=== PATIENT | male | born 1940 | race Caucasian/White ===

== ENCOUNTER 2016-12-22 07:47 | Inpatient (IN) | payer MEDICARE ==
[2016-12-22] MEDS ORDERED: VASELINE LIP THERAPY TP PRN (08:02)
[2016-12-22] MEDS ORDERED: ARTIFICIAL TEARS OPHTH OINT OU PRN (08:02)
[2016-12-22] MEDS ORDERED: LEVOPHED DRIP 4 MG/NS 250 ML 4 MG/250 ML BAG IV SCH ×2 (08:11→09:00)
--- NOTE | 2016-12-22 08:17 | Emergency Department Report ---
ED CPR HPI - General Chief Complaint: Cardiac Arrest/CPR Stated Complaint: CARDIAC ARREST Time Seen by Provider: 12/22/16 08:01 Source: EMS, old records reviewed Mode of arrival: Stretcher Limitations: Altered Mental Status - History of Present Illness Initial Comments: 76-year-old male presents to the emergency department via EMS in cardiac arrest. Patient is a resident of a local shelter. Per report patient was last seen normal at 6:30 AM. Patient was noted to be unresponsive at 7 AM. CPR was started by the shelter staff. Upon EMS arrival, the patient was found to be apneic and pulseless. Initial rhythm on the registered nurse cardiac telemetry showed PEA. Patient was intubated by EMS. A left tibial IO was placed. Patient was administered 2 mg of epinephrine, one dose of Narcan, 1 amp of sodium bicarbonate, and was started on an epinephrine drip prior to arrival. Patient did have return of spontaneous circulation prior to arrival in the emergency department. Further history is unable to be obtained from the patient due to his clinical condition. MD Complaint: found unresponsive Time: 07:00 Place: OR/SNF Bystander CPR Performed: Yes Initial Findings in the Field: unresponsive, no respirations, no pulse, PEA ROSC in the Field: Yes Associated Injuries: No Treatments Prior to Arrival: intubation, epinephrine mgs # (2), sodium bicarbonate - Related Data Home Medications Medication Instructions Recorded Confirmed Last Taken Arginine/Glutamine/Calcium Hmb 1 each FEEDTUBE BID 12/22/16 12/22/16 Unknown [[place] Packet] Famotidine [Pepcid] 20 mg FEEDTUBE BID 12/22/16 12/22/16 Unknown Insulin Regular, Human [HumuLIN R] 1 unit SQ ACHS PRN 12/22/16 12/22/16 Unknown Allergies Allergy/AdvReac Type Severity Reaction Status Date / Time No Known Allergies Allergy Verified 12/22/16 08:09 ED Review of Systems ROS: Stated complaint: CARDIAC ARREST Other details as noted in HPI Comment: Unobtainable due to pts medical conditions ED Past Medical Hx - Past Medical History Previous Medical History?: Yes Hx Hypertension: Yes Hx Diabetes: Yes - Surgical History Past Surgical History?: Yes Additional Surgical History: Gastrostomy tube placement - Family History Family history: no significant - Social History Smoking Status: Unknown if ever smoked - Medications Home Medications: Home Medications Medication Instructions Recorded Confirmed Last Taken Type Arginine/Glutamine/Calcium Hmb 1 each FEEDTUBE BID 12/22/16 12/22/16 Unknown History [[place] Packet] Famotidine [Pepcid] 20 mg FEEDTUBE BID 12/22/16 12/22/16 Unknown History Insulin Regular, Human [HumuLIN R] 1 unit SQ ACHS PRN 12/22/16 12/22/16 Unknown History ED Physical Exam - General Limitations: Other General appearance: obtunded - Head Head exam: Present: atraumatic, normocephalic - Eye Eye exam: Present: normal appearance. Absent: PERRL (pupils 3 mm equal and minimally reactive) - ENT ENT exam: Present: mucous membranes moist, other (ETT in place) - Neck Neck exam: Present: normal inspection, full ROM - Respiratory Respiratory exam: Present: normal lung sounds bilaterally (with assisted ventilation. No spontaneous respirations noted) - Cardiovascular Cardiovascular Exam: Present: normal rhythm, tachycardia, normal heart sounds - GI/Abdominal GI/Abdominal exam: Present: soft, normal bowel sounds. Absent: distended, tenderness - Extremities Exam Extremities exam: Present: normal inspection, full ROM - Back Exam Back exam: Present: normal inspection, full ROM, other (wound vac noted over sacral decubitus ulcer) - Neurological Exam Neurological exam: Present: other (GCS 3T (E1, V1T, M1)) - Skin Skin exam: Present: warm, dry ED Course Vital Signs 12/22/16 12/22/16 12/22/16 07:47 07:50 08:00 Pulse Rate 123 H 121 H Respiratory 13 18 Rate Blood Pressure 96/60 62/27 O2 Sat by Pulse 100 Oximetry 12/22/16 12/22/16 12/22/16 08:11 08:21 08:25 Pulse Rate 105 H 94 H 117 H Respiratory 18 Rate Blood Pressure 93/37 93/37 93/37 O2 Sat by Pulse 100 100 Oximetry 12/22/16 12/22/16 12/22/16 08:31 08:41 08:45 Pulse Rate 105 H 106 H Respiratory 18 18 18 Rate Blood Pressure 93/37 69/32 O2 Sat by Pulse 100 Oximetry - Reevaluation(s) Reevaluation #1: 12/22/16 08:19 On arrival, the endotracheal tube placed by EMS appeared not to be in the proper position. This tube was removed. Patient was intubated by me on the first attempt, see procedure note. Epinephrine drip has been discontinued and patient started on norepinephrine drip. Obtaining labs and chest x-ray. Anticipate central line placement for further vasopressor support Reevaluation #2: 12/22/16 10:16 Lab and imaging results have been reviewed. Due to the elevated white blood cell count, elevated lactic acid level, and renal insufficiency there is concern for septic shock in this patient. Sepsis order set has been implanted including blood cultures. The patient's Yuan catheter will be exchanged by nursing and a fresh sample will be collected for culture. Patient will be administered IV Zosyn. Patient continues on a norepinephrine drip. Patient is to be admitted by the hospitalist. - Central Line Placement Right IJ Consent Obtained: emergent situation Time Out Performed: Yes Patient Placed on Monitor/Pulse Ox: Yes MD Prep: mask, gown, gloves Central Line Prep: Chlorhexidine scrub, sterile drapes applied Ultrasound Used for Placement: Yes Central Line Lumen Inserted: triple Bloods Obtained for Lab: No Central Line Position: good blood return, all ports aspirated, flus, sutured in place with nyl Dressing Applied: Tegaderm Post Procedure X-Ray: tip of catheter in good p Patient Tolerated Procedure: well Complications: none - Intubation Sedative: none ET Tube Size: 7.5 Tube Secured Depth (cm): 24 Tube Secured Location: lips Tube Placement Confirmation: visualized tube passing t, equal breath sounds bilat, no breath sounds over epi, confirmation by capnometr Patient Tolerated Procedure: well Intubation Complications: none ED Medical Decision Making - Lab Data Result diagrams: 12/22/16 08:10 12/22/16 08:10 - EKG Data -: EKG Interpreted by Me EKG shows normal: sinus rhythm, QRS complexes Rate: tachycardia - EKG Data When compared to previous EKG there are: previous EKG unavailable Interpretation: nonspecific ST-T wave anu, other (sinus tachycardia, first- degree AV block, left axis deviation) - Radiology Data Radiology results: image reviewed interpreted by me: Chest x-ray shows no acute cardiopulmonary abnormality. Endotracheal tube is in the proper position. The right internal jugular central line terminates in the superior vena cava. No pneumothorax seen. - Differential Diagnosis acute respiratory failure, arrhythmia Critical Care Time: Yes Critical care time in (mins) excluding proc time.: 45 Critical care attestation.: If time is entered above; I have spent that time in minutes in the direct care of this critically ill patient, excluding procedure time. Critical Care Time: The high probability of a clinically significant, sudden or life threatening deterioration of the cardiovascular and respiratory system(s) required my full and direct attention, intervention and personal management. The aggregate critical care time was 45 minutes. This time is in addition to time spent performing reported procedures but includes the following: [x] Data Review and interpretation [x] Patient assessment and monitoring of vital signs [x] Documentation [x] Medication orders and management ED Disposition Clinical Impression: Septic shock, Cardiac arrest due to other underlying condition Sepsis Qualifiers: Sepsis type: sepsis due to unspecified organism Qualified Code(s): A41.9 - Sepsis, unspecified organism Disposition: OP ADMITTED IP TO THIS HOSP Is pt being admited?: Yes Condition: Critical Referrals: DEEPAK WISDOM MD [Primary Care Provider] - 3-5 Days Time of Disposition: 10:20
--- NOTE | 2016-12-22 08:42 | Admit Criteria Form ---
Admission Criteria Documentation: SEVERE SEPSIS Clinical Indications for Admission to Inpatient Care (Place 'X' for any and all applicable criteria): Hospital admission is needed for appropriate care of the patient because of ANY ONE of the following: [X]I. Hemodynamic instability indicated by ANY ONE of the following(1)(2)(3)( 4)(5): [X]a. Vital sign abnormality not readily corrected by appropriate treatment within 12 to 24 hours indicated by ANY ONE of the following: []i) Tachycardia that persists despite appropriate treatment [X]ii) Hypotension that persists despite appropriate treatment []iii) Orthostatic vital sign changes that persist despite appropriate treatment [X]b. Vital sign abnormality that is severe indicated by ANY ONE of the following: [X]i.Inadequate perfusion indicated by ANY ONE of the following : [X]1) Lactic acidosis (greater than 2 mmol/L) []2) New abnormal capillary refill (greater than 3 seconds) []3) Reduced urine output []4) New altered mental status []5) Myocardial Ischemia [X]ii. Mean arterial pressure [A] less than 60 mm Hg []iii. Mean arterial pressure[A] less than 70 mm Hg after 30 minutes of appropriate treatment (eg, fluid resuscitation) []iv. Sustained heart rate greater than 120 beats per minute in adult []v. IV inotropic or vasopressor medication required to maintain adequate blood pressure or perfusion []II. Systemic or infectious condition causing severe symptoms or findings not responsive to emergency or observation care treatment (as appropriate) indicated by ANY ONE of the following: []a. Cardiac arrhythmias of immediate concern(1)(2)(3) []b. Severe endocrine disorder (eg, thyrotoxicosis, adrenal insufficiency)(4)(5) []c. Seizures (eg, new or recurrent)(6) []d. New-onset end organ failure or dysfunction as indicated by ANY ONE of the following: []i. Acute unexplained hypoxemia (eg, not from lung infection or chronic disease)(7)(8)(9) []ii. Acute renal failure as indicated by new onset of ANY ONE of the following(10)(11)(12)(13)(14): []1) 3-fold rise in serum creatinine from baseline []2) Serum creatinine greater than 4 mg/dL (354 micromoles/L) with acute rise greater than 0.5 mg/dL (44.2 micromoles/L) []3) Reduction of more than 75% in estimated glomerular filtration rate from baseline. []4) Estimated glomerular filtration rate less than 35 mL/min/1.73m2 ( 0.59 mL/sec/1.73m2) in child younger than 18 years. []5) Cessation of urine output indicated by ALL of the following: []A. Adequate volume status []B. Inadequate urine output as indicated by ANY ONE of the following: []a. Urine output less than 0.3 mL/kg/hr for 24 hours []b. Anuria (urine output less than 0.1 mL/kg/hr) for 12 hours []iii. Acute mental status changes(15) []iv. Acute hepatic failure (eg, plasma bilirubin greater than 4 mg/ dL (68 micromoles/L), new INR greater than 2.0)(16)(17) []e. Unmanageable nausea and vomiting(18) []f. New-onset or uncontrolled central diabetes insipidus(19)(20) []g. Clinically significant dehydration(18)(21) []h. Hypoglycemia(22) []i. Acidosis (pH less than 7.35) or alkalosis (pH greater than 7.45)( 22)(23) []j. Toxic drug level that indicates need for specific monitoring or treatment(24)(25) []k. Severe electrolyte abnormalities indicated by ALL of the following( 1)(2)(3): []i. Electrolytes and associated findings are not as expected for patient baseline or acceptable treatment effects. []ii. Severe abnormalities indicated by ANY ONE of the following: []1) Sodium less than 130 mEq/L (mmol/L) (new) []2) Sodium less than 135 mEq/L (mmol/L) with ANY ONE of the following: []A. Uncorrectable (to near normal or chronic baseline) after trial of outpatient and emergency treatment []B. Altered mental status []C. Seizures []D. Severe medical etiology requiring inpatient management (eg , heart failure, hypovolemia) []3) Sodium greater than 155 mEq/L (mmol/L) []4) Sodium greater than 150 mEq/L (mmol/L) with ANY ONE of the following: []A. Uncorrectable (to near normal or chronic baseline) with outpatient and emergency treatment []B. Altered mental status []C. Seizures []D. Severe medical etiology (eg, hypovolemia, diabetes insipidus) []5) Potassium less than 2.5 mEq/L (mmol/L) despite outpatient and emergency treatment []6) Potassium less than 3 mEq/L (mmol/L) with ANY ONE of the following : []A. Weakness []B. Cardiac abnormality (eg, arrhythmia, conduction disturbance ) []C. Cardiac ischemia []D. Ileus []E. Ongoing medical cause requiring inpatient management (eg, acute renal wasting or SIADH) []F. Other severe symptoms []7) Potassium greater than 6.5 mEq/L (mmol/L) []8) Potassium greater than 5 mEq/L (mmol/L) with ANY ONE of the following: []A. Uncorrectable (to near normal or chronic baseline) with outpatient and emergency treatment []B. Severe ECG findings[A] []C. Acute worsening of renal failure (creatinine greater than 2.5 mg/dL (221 micromoles/L) or significant elevation for age and size) []D. Severe weakness []E. Severe medical etiology (eg, hemolysis, infection, drug overdose) []9) Calcium less than 7 mg/dL (1.75 mmol/L) despite outpatient and emergency treatment(5) []10) Calcium less than 8 mg/dL (2 mmol/L) with significant symptoms or findings (eg, altered mental status, muscle spasms, seizures, breathing difficulty, cardiac abnormality (eg, arrhythmia or conduction disturbance))(5) []11) Calcium greater than 14 mg/dL (3.5 mmol/L)(5) []12) Calcium greater than 12 mg/dL (3 mmol/L) with ANY ONE of the following(5): []A. Uncorrectable (to near normal or chronic baseline) with outpatient and emergency treatment []B. Significant dehydration or hypovolemia as indicated by ALL of the following(3)(6)(7): []a. Not resolved with initial treatments []b. Clinically significant dehydration as indicated by ANY ONE of the following: [](1) Vomiting refractory to outpatient treatment (ie, precluding oral rehydration) [](2) Inability to drink [](3) Hypernatremia or other electrolyte abnormality unable to be corrected with outpatient and emergency treatment [](4) Failure to remain hydrated with outpatient therapy [](5) Reduced urine output [](6) Hypotension [](7) Serious cause for dehydration requiring acute hospitalization ( eg, bowel obstruction, increased intracranial pressure, infectious cause) [](8) Child with ANY ONE of the following(8): [](i) Severe abdominal tenderness [](ii) Adequate care not available at home [](iii) Severe dehydration (greater than 9% loss of body weight) []C. Significant symptoms or findings (eg, altered mental status , cardiac abnormality (eg, arrhythmia, conduction disturbance), malignant etiology requiring inpatient treatment) []13) Phosphorus less than 1 mg/dL (0.32 mmol/L) []14) Phosphorus less than 1.5 mg/dL (0.48 mmol/L) with ANY ONE of the following: []A. Patient unresponsive to outpatient and emergency treatment []B. Significant symptoms or findings (eg, weakness, altered mental status, breathing difficulty, seizures, rhabdomyolysis) []15) Phosphorus greater than 10 mg/dL (3.2 mmol/L) []16) Phosphorus greater than 4.5 mg/dL (1.45 mmol/L) (new) with ANY ONE of the following: []A. Severe medical etiology (eg, crush injury, acute renal failure) []B. Associated hypocalcemia with significant findings (eg, neurologic symptoms, altered mental status, muscle spasms, seizures, breathing difficulty, cardiac abnormality (eg, arrhythmia, conduction disturbance)) []16) Magnesium less than 1 mg/dL (0.41 mmol/L) []17) Magnesium less than 1.5 mg/dL (0.62 mmol/L) with ANY ONE of the following: []A. Patient unresponsive to outpatient and emergency treatment []B. Associated hypocalcemia with significant findings (eg, altered mental status, muscle spasms, seizures, breathing difficulty, cardiac abnormality (eg, arrhythmia, conduction disturbance)) []C. Associated hypokalemia (potassium less than 3 mEq/L (mmol/L )) with risk of arrhythmia []18) Magnesium greater than 4 mEq/L (2 mmol/L) []19) Magnesium greater than 2.5 mEq/L (1.25 mmol/L) with significant symptoms or findings (eg, weakness, altered mental status, cardiac abnormality (eg, arrhythmia, conduction disturbance), breathing difficulty, severe medical etiology (eg, renal failure, hypovolemia)) []20) Uric acid greater than 20 mg/dL (1190 micromoles/L)(9) []21) Uric acid greater than 8 mg/dL (476 micromoles/L) with significant symptoms or findings of tumor lysis syndrome (eg, creatinine greater than 1.5 times upper limit of normal, cardiac abnormality (eg , arrhythmia, conduction disturbance), seizure)(9) []III. High fever or other high-risk infection situation as indicated by ANY ONE of the following(26)(27)(28): []a. Outpatient and observation care antimicrobial treatment unavailable, not effective, or not appropriate []b. Documented bacteremia []c. Temperature greater than 104.9 degrees F (40.5 degrees C) (oral) []d. Temperature greater than 103.1 degrees F (39.5 degrees C) (oral) or less than 96.8 degrees F (36 degrees C) (rectal) that does not respond to emergency treatment and observation care []IV. High-risk febrile neutropenia[A] as indicated by ANY ONE of the following(29)(30)(31)(32): []a. Profound neutropenia[B] anticipated to extend for more than 7 days []b. Hemodynamic instability []c. Hypoxemia []d. Tachypnea []e. Altered mental status []f. New-onset abdominal pain []g. New-onset vomiting or diarrhea []h. Oral or gastrointestinal mucositis that interferes with swallowing or causes severe diarrhea []i. Focal infection (eg, cellulitis, pneumonia, central line or catheter infection, perirectal abscess) []j. Renal insufficiency (eg, GFR of less than 30 mL/min/1.73m2 (0.5 mL/sec /1.73m2)). []k. Severe liver dysfunction (transaminase levels greater than 5 times normal) []l. Platelet count less than 50,000/mm3 (50 x109/L)(33) []m. Leukemia or lymphoma induction therapy []n. Leukemia not in complete remission or with evidence of disease progression []o. Bone marrow transplant patient []p. Alemtuzumab being used for therapy []q. [employer] Association for Supportive Care in Cancer (MASCC) Risk Index score of less than 21[C](33)(35). []V. Isolation required (eg, tuberculosis that requires isolation, Ebola infection)[D](36)(37)(38)(39)(40) []. Gangrene that requires treatment beyond emergency or observation level care(41)(42) []VII. Antitoxin administration and ongoing observation required (eg, tetanus, botulism)(43)(44) [X]. Suspected infection with rapid progression or severe symptoms as indicated by ANY ONE of the following(45): []a. Streptococcal or staphylococcal toxic shock(46) []b. Diphtheria(47) []c. Hantavirus(48) []d. Severe acute respiratory syndrome(8)(49) []e. Anthrax(50) []f. Ebola[D](36)(37)(38) []g. Necrotizing soft tissue infection(41)(42) []h. Plague(50) [X]i. Other suspected infection that requires care beyond emergency or observation level care []VII. Severe adverse drug or systemic toxin reaction as indicated by ANY ONE of the following(24): []a. Serotonin syndrome(51)(52) []b. Neuroleptic malignant syndrome(51)(52) []c. Cholinergic syndrome with severe symptoms (eg, bronchorrhea, weakness , mental status changes, seizures)(53) []d. Anticholinergic syndrome []e. Sympathetic syndrome with severe symptoms (eg, seizures, mental status changes, cardiac dysrhythmias) []f. Other severe adverse drug or systemic toxin reaction that remains after emergency or observation level care (as appropriate) []VIII. Allergic reaction with severe symptoms (not responsive to emergency or observation care treatment as appropriate), including ANY ONE of the following(54): []a. Airway edema (pharyngeal, epiglottic, or laryngeal edema) []b. Stridor []c. Respiratory failure []d. Bronchospasm []e. Hypotension []IX. Environmental emergency (not responsive to emergency or observation care treatment as appropriate) as indicated by ANY ONE of the following(55)(56): []a. Hyperthermia []b. Heat stroke []c. Heat exhaustion []d. Hypothermia (temperature less than 95 degrees F (35 degrees C) rectal) (57) []e. Electrocution(58) []X. Complications of transplanted organ (ie, not covered elsewhere)[E] indicated by ANY ONE of the following(59): []a. Acute graft rejection (or graft vs. host disease)[F] requiring inpatient management (eg, intravenous immunosuppression)(60)(61)(62)( 63) []b. Acute failure of transplanted organ necessitating inpatient care (eg, cannot be managed in other setting) []c. Infection requiring inpatient management (eg, Hemodynamic instability, need for intravenous antimicrobial treatment)(64)(65) []d. Other complication of transplanted organ requiring inpatient management []XI. Systemic or Infectious Condition condition, symptom, or finding for which emergency and observation care have failed or are not considered appropriate. See General Criteria: Observation Care, General Admission Criteria or Pediatric General Admission Criteria guideline as appropriate. (Contents from SEVERE SEPSIS and SYSTEMIC OR INFECTIOUS CONDITION clinical indications for admission to inpatient care have been integrated in this form) The original [facility] content created by [facility] has been revised. The portions of the content which have been revised are identified through the use of italic text or in bold and [facility] has neither reviewed nor approved the modified material. All other unmodified content is copyright [facility]. Please see references footnoted in the original [facility] edition 2016 Admission Criteria Met: Yes
[2016-12-22 08:47] LABS: Albumin 2.4 g/dL (3.9-5); Albumin/Globulin Ratio 0.6 %; BUN/Creatinine Ratio 42.5; Bilirubin,Total 0.4 mg/dL (0.1-1.2); Calcium 8.9 mg/dL (8.4-10.2); Chloride 94.5 mmol/L (98-107); Potassium 4.1 mmol/L (3.6-5.0); Total Protein 6.5 g/dL (6.3-8.2)
[2016-12-22 08:48] LABS: Hematocrit 24.3 % (35.5-45.6); Hemoglobin 7.2 gm/dl (11.8-15.2); Mean Corpuscular HGB Conc 30 % (32-34); Mean Corpuscular Hemoglobin 28 pg (28-32); Mean Corpuscular Volume 96 fl (84-94); Platelet Count 360 K/mm3 (140-440); Red Blood Count 2.55 M/mm3 (3.65-5.03); Red Cell Distribution Width 18.4 % (13.2-15.2)
[2016-12-22 09:00] LABS: White Blood Count 36.1 K/mm3 (4.5-11.0)
[2016-12-22] MEDS ORDERED: NACL 0.9% 500 ML IV SCH (09:00)
[2016-12-22 10:00] LABS: Anisocytosis Few; Basophils % (Manual) 0 % (0.0-1.8); Blastocytes % (Manual) 0 %; Eosinophils % (Manual) 0.5 % (0.0-4.3)
[2016-12-22 10:01] LABS: Burr Cells 1+; Diff Status Complete; Elliptocytes 1+; Hypochromasia 1+; Poikilocytosis 1+; Polychromasia Few; Smudge Cells Few; Toxic Granulation Few
[2016-12-22] MEDS ORDERED: NACL 0.9% 1000 ML IV ONE (10:04)
--- NOTE | 2016-12-22 10:38 | XRay Report ---
Single view chest: History: ET tube placement. Findings: Normal cardiomediastinal silhouette. Trachea is midline. Tip of endotracheal tube in normal position. Tip of right central line in the superior vena cava. Bilateral perihilar infiltrates. No pneumothorax or pleural effusion. Impression: Bilateral perihilar infiltrates probably suggestive of pneumonitis. Less likely pulmonary edema.
[2016-12-22] MEDS ORDERED: ZOSYN/NS 3.375GM/50ML 3.375 GM/50 ML BAG IV ONE (11:00)
[2016-12-22] MEDS ORDERED: MILK OF MAGNESIA PO PRN (11:02)
[2016-12-22] MEDS ORDERED: MORPHINE IV PRN (11:02)
[2016-12-22] MEDS ORDERED: ZOFRAN IV PRN (11:02)
[2016-12-22] MEDS ORDERED: VANCOMYCIN VIAL 1,250 MG in NACL 0.9% 500 ML 500 ML IV ONE (11:02)
[2016-12-22] MEDS ORDERED: DULCOLAX PR PRN (11:02)
[2016-12-22] MEDS ORDERED: ALUM-MAG HYDROX-SIMETH 200-200-20MG/5ML PO PRN (11:02)
[2016-12-22 11:03] LABS: Bilirubin,Urine NEG (Negative); Blood,Urine MOD (Negative); Ketones,Urine NEG (Negative); Leukocyte Esterase,Urine LG (Negative); Nitrite,Urine NEG (Negative); Urobilinogen,Urine < 2.0 mg/dL (<2.0)
[2016-12-22 11:06] LABS: Bacteria,Urine 3+ /HPF (Negative); Mucus,Urine 1+ /HPF
[2016-12-22 11:09] LABS: WBC,Urine > 182.0 /HPF (0.0-6.0)
--- NOTE | 2016-12-22 11:10 | History and Physical Report ---
History of Present Illness Date of examination: 12/22/16 Date of admission: 12-22-16 Chief complaint: cardio arrest History of present illness: A showed 7 76-year-old male with a past medical history of hypertension, lipidemia, gastric cancer, diabetes diabetes. Patient was brought in from the senior care after an episode of pulseless activity. It was unknown how long patient was found down but it was approximately 6:30 this a.m. Nurses at the facility began CPR. Then patient was transferred to the ED. On ED patient had another episode of cardiorespiratory arrest and which were resuscitation measures. Patient was eventually intubated. Upon that time patient did not have a gag reflex was on the endotracheal to without any sedation. Patient pupils was somewhat dilated. Patient was unresponsive to even tactile stimulus. Nonverbal and obtunded. She was also found to be hypotensive upon evaluating patient had a and a catheter with martinez brown urine. Patient also had a large sacral decubitus wound. Past History Past Medical History: arrhythmia, COPD, diabetes, heart failure, hypertension, hyperlipidemia, other. denies: acute NV, atrial fib, anemia, arthritis, CAD, cancer, dialysis, DVT, ESRD, GERD, hepatitis, HIV/AIDS, hyperthyroidism, hypothyroidism, liver disease, migraines, seizures, stroke, sarcoidosis Past Surgical History: Other Social history: , smoking, other (unresponsicve unknown). denies: alcohol abuse, prescription drug abuse Medications and Allergies Allergies Allergy/AdvReac Type Severity Reaction Status Date / Time No Known Allergies Allergy Verified 12/22/16 08:09 Home Medications Medication Instructions Recorded Confirmed Last Taken Type Arginine/Glutamine/Calcium Hmb 1 each FEEDTUBE BID 12/22/16 12/22/16 Unknown History [[place]wick Packet] Famotidine [Pepcid] 20 mg FEEDTUBE BID 12/22/16 12/22/16 Unknown History Insulin Regular, Human [HumuLIN R] 1 unit SQ ACHS PRN 12/22/16 12/22/16 Unknown History Active Meds: Active Medications Hydrophilic Ointment (Vaseline Lip Therapy) 1 applic TP Q2HR PRN PRN Reason: Dry Lips Last Admin: 12/22/16 10:41 Dose: 1 applic Norepinephrine (Levophed Drip 4 Mg/Ns 250 Ml) 4 mg in 250 mls @ 7.5 mls/hr IV TITR MIKEY; 2 MCG/MIN PRN Reason: Protocol Last Titration: 12/22/16 09:00 Dose: 10 mcg/min, 37.5 mls/hr Piperacillin Sod/Tazobactam Sod (Zosyn/Ns 3.375gm/50ml) 3.375 gm in 50 mls @ 100 mls/hr IV ONCE.ED ONE Stop: 12/22/16 11:29 Multi-Ingred Cream/Lotion/Oil/Oint (Artificial Tears Ophth Oint) 1 applic OU Q4HR PRN PRN Reason: Dry Eye(s) Last Admin: 12/22/16 10:41 Dose: 1 applic Sodium Chloride (Nacl 0.9% 500 Ml) 1 ml IV DIRECT MIKEY Review of Systems ROS unobtainable: due to mental status Exam - Constitutional Vitals: Temp Pulse Resp BP Pulse Ox 121 H 18 80/43 99 12/22/16 10:20 12/22/16 08:45 12/22/16 10:20 12/22/16 10:20 General appearance: Present: cachectic, disheveled, other (temporal wasting and cachectic appearing dry oral mucosa.) - EENT Eyes: Present: miosis ENT: other (pupils fixed) - Neck Neck: Present: supple, normal ROM - Respiratory Respiratory effort: labored, accessory muscle use Respiratory: negative: diminished (intubated) - Cardiovascular Heart rate: 114 Rhythm: other (pretenses) Heart Sounds: Present: systolic murmur ( tachycardic hypotensive) - Extremities Extremity abnormal: other (has stage IV sacral decubitus wound chronic indwelling Yuan catheter. Minutes pulses and rash on right tibialis anterior area) - Abdominal General gastrointestinal: Present: other (scaphoid abdomen hypoactive bowel sounds) Male genitourinary: Present: deferred - Rectal Rectal Exam: deferred - Integumentary Integumentary: Present: clear, warm - Musculoskeletal Musculoskeletal: generalized weakness - Psychiatric Psychiatric: other - Neurologic Neurologic: focal deficits Results - Labs CBC & Chem 7: 12/22/16 08:10 12/22/16 08:10 Labs: Laboratory Last Values WBC 36.1 K/mm3 (4.5-11.0) H 12/22/16 08:10 RBC 2.55 M/mm3 (3.65-5.03) L 12/22/16 08:10 Hgb 7.2 gm/dl (11.8-15.2) L 12/22/16 08:10 Hct 24.3 % (35.5-45.6) L 12/22/16 08:10 MCV 96 fl (84-94) H 12/22/16 08:10 MCH 28 pg (28-32) 12/22/16 08:10 MCHC 30 % (32-34) L 12/22/16 08:10 RDW 18.4 % (13.2-15.2) H 12/22/16 08:10 Plt Count 360 K/mm3 (140-440) 12/22/16 08:10 Add Manual Diff Complete 12/22/16 08:10 Total Counted 200 12/22/16 08:10 Seg Neuts % (Manual) 73.0 % (40.0-70.0) H 12/22/16 08:10 Band Neutrophils % 10.0 % 12/22/16 08:10 Lymphocytes % (Manual) 5.5 % (13.4-35.0) L 12/22/16 08:10 Reactive Lymphs % (Man) 1.0 % 12/22/16 08:10 Monocytes % (Manual) 2.5 % (0.0-7.3) 12/22/16 08:10 Eosinophils % (Manual) 0.5 % (0.0-4.3) 12/22/16 08:10 Basophils % (Manual) 0 % (0.0-1.8) 12/22/16 08:10 Metamyelocytes % 5.0 % 12/22/16 08:10 Myelocytes % 2.0 % 12/22/16 08:10 Promyelocytes % 0.5 % 12/22/16 08:10 Blast Cells % 0 % 12/22/16 08:10 Nucleated RBC % Not Reportable 12/22/16 08:10 Seg Neutrophils # Man 26.4 K/mm3 (1.8-7.7) H 12/22/16 08:10 Band Neutrophils # 3.6 K/mm3 12/22/16 08:10 Lymphocytes # (Manual) 2.0 K/mm3 (1.2-5.4) 12/22/16 08:10 Abs React Lymphs (Man) 0.4 K/mm3 12/22/16 08:10 Monocytes # (Manual) 0.9 K/mm3 (0.0-0.8) H 12/22/16 08:10 Eosinophils # (Manual) 0.2 K/mm3 (0.0-0.4) 12/22/16 08:10 Basophils # (Manual) 0.0 K/mm3 (0.0-0.1) 12/22/16 08:10 Metamyelocytes # 1.8 K/mm3 12/22/16 08:10 Myelocytes # 0.7 K/mm3 12/22/16 08:10 Promyelocytes # 0.2 K/mm3 12/22/16 08:10 Blast Cells # 0.0 K/mm3 12/22/16 08:10 WBC Morphology Not Reportable 12/22/16 08:10 Hypersegmented Neuts Not Reportable 12/22/16 08:10 Hyposegmented Neuts Not Reportable 12/22/16 08:10 Hypogranular Neuts Not Reportable 12/22/16 08:10 Smudge Cells Few 12/22/16 08:10 Toxic Granulation Few 12/22/16 08:10 Toxic Vacuolation Not Reportable 12/22/16 08:10 Dohle Bodies Not Reportable 12/22/16 08:10 Pelger-Huet Anomaly Not Reportable 12/22/16 08:10 Jeny Rods Not Reportable 12/22/16 08:10 Platelet Estimate Appears normal 12/22/16 08:10 Clumped Platelets Not Reportable 12/22/16 08:10 Plt Clumps, EDTA Not Reportable 12/22/16 08:10 Large Platelets Not Reportable 12/22/16 08:10 Giant Platelets Not Reportable 12/22/16 08:10 Platelet Satelliting Not Reportable 12/22/16 08:10 Plt Morphology Comment Not Reportable 12/22/16 08:10 RBC Morphology Not Reportable 12/22/16 08:10 Dimorphic RBCs Not Reportable 12/22/16 08:10 Polychromasia Few 12/22/16 08:10 Hypochromasia 1+ 12/22/16 08:10 Poikilocytosis 1+ 12/22/16 08:10 Anisocytosis Few 12/22/16 08:10 Microcytosis Not Reportable 12/22/16 08:10 Macrocytosis Not Reportable 12/22/16 08:10 Spherocytes Not Reportable 12/22/16 08:10 Pappenheimer Bodies Not Reportable 12/22/16 08:10 Sickle Cells Not Reportable 12/22/16 08:10 Target Cells Not Reportable 12/22/16 08:10 Tear Drop Cells Not Reportable 12/22/16 08:10 Ovalocytes Not Reportable 12/22/16 08:10 Helmet Cells Not Reportable 12/22/16 08:10 [place] Bodies Not Reportable 12/22/16 08:10 [place] Rings Not Reportable 12/22/16 08:10 Barbara Cells 1+ 12/22/16 08:10 Bite Cells Not Reportable 12/22/16 08:10 Crenated Cell Not Reportable 12/22/16 08:10 Elliptocytes 1+ 12/22/16 08:10 Acanthocytes (Spur) Not Reportable 12/22/16 08:10 Rouleaux Not Reportable 12/22/16 08:10 Hemoglobin C Crystals Not Reportable 12/22/16 08:10 Schistocytes Not Reportable 12/22/16 08:10 Malaria parasites Not Reportable 12/22/16 08:10 Greg Bodies Not Reportable 12/22/16 08:10 Hem Pathologist Commnt Sent to pathology 12/22/16 08:10 Sodium 141 mmol/L (137-145) 12/22/16 08:10 Potassium 4.1 mmol/L (3.6-5.0) 12/22/16 08:10 Chloride 94.5 mmol/L (98-107) L 12/22/16 08:10 Carbon Dioxide 17 mmol/L (22-30) L 12/22/16 08:10 Anion Gap 34 mmol/L 12/22/16 08:10 BUN 68 mg/dL (9-20) H 12/22/16 08:10 Creatinine 1.6 mg/dL (0.8-1.5) H 12/22/16 08:10 Estimated GFR 42 ml/min 12/22/16 08:10 BUN/Creatinine Ratio 42.50 % 12/22/16 08:10 Glucose 167 mg/dL (75-100) H 12/22/16 08:10 POC Glucose 233 (70-105) H 12/22/16 07:51 Lactic Acid 14.7 mmol/L (0.7-2.0) H* 12/22/16 08:10 Calcium 8.9 mg/dL (8.4-10.2) 12/22/16 08:10 Total Bilirubin 0.4 mg/dL (0.1-1.2) 12/22/16 08:10 AST 418 units/L (5-40) H 12/22/16 08:10 ALT 296 units/L (7-56) H 12/22/16 08:10 Alkaline Phosphatase 198 units/L (35-129) H 12/22/16 08:10 Troponin T 0.065 ng/mL (0.00-0.029) H 12/22/16 08:10 Total Protein 6.5 g/dL (6.3-8.2) 12/22/16 08:10 Albumin 2.4 g/dL (3.9-5) L 12/22/16 08:10 Albumin/Globulin Ratio 0.6 % 12/22/16 08:10 Triglycerides 155 mg/dL (2-149) H 12/22/16 08:10 Cholesterol 71 mg/dL (50-199) 12/22/16 08:10 LDL Cholesterol Direct 33 mg/dL (50-130) L 12/22/16 08:10 HDL Cholesterol 7 mg/dL (40-59) L 12/22/16 08:10 Cholesterol/HDL Ratio 10.14 % 12/22/16 08:10 Urine Color Meghann (Yellow) 12/22/16 10:45 Urine Turbidity Turbid (Clear) 12/22/16 10:45 Urine pH 8.0 (5.0-7.0) H 12/22/16 10:45 Ur Specific [place] 1.014 (1.003-1.030) 12/22/16 10:45 Urine Protein 100 mg/dl mg/dL (Negative) 12/22/16 10:45 Urine Glucose (UA) Neg mg/dL (Negative) 12/22/16 10:45 Urine Ketones Neg mg/dL (Negative) 12/22/16 10:45 Urine Blood Mod (Negative) 12/22/16 10:45 Urine Nitrite Neg (Negative) 12/22/16 10:45 Urine Bilirubin Neg (Negative) 12/22/16 10:45 Urine Urobilinogen < 2.0 mg/dL (<2.0) 12/22/16 10:45 Ur Leukocyte Esterase Lg (Negative) 12/22/16 10:45 Urine WBC (Auto) > 182.0 /HPF (0.0-6.0) H 12/22/16 10:45 Urine RBC (Auto) 29.0 /HPF (0.0-6.0) 12/22/16 10:45 U Epithel Cells (Auto) 2.0 /HPF (0-13.0) 12/22/16 10:45 Urine Bacteria (Auto) 3+ /HPF (Negative) 12/22/16 10:45 Urine WBC Clumps 3+ /HPF 12/22/16 10:45 Urine Mucus 1+ /HPF 12/22/16 10:45 - Imaging and Cardiology EKG: image reviewed Chest x-ray: image reviewed Assessment and Plan Assessment and plan: I spent 60 minutes critical care time with patient. Patient required mod direct intervention and direct assessment immediately. Because of risk of decompensation from the cardiac system pulmonary system endocrine system and infectious disease. Patient had extensive history. Extensive data evaluation. So will require coordination and care and attempt to find the . prison is informed me that the had several months previously in the hospital. There is only a family friend Concetta at [phone] and I have been unable to reach her. Advance Directives: Yes VTE prophylaxis?: Chemical Plan of care discussed with patient/family: Yes - Patient Problems (1) Failure to thrive Current Visit: Yes Status: Acute Qualifiers: Failure to thrive age range: F Plan to address problem: Failure to thrive patient has complaints of being morbidly obese but now very thin temporal wasting scaphoid abdomen appears very ill. Chronically ill. Quite possible that gastric cancer was etiology of patient's initial decline. (2) Cardiac arrest due to other underlying condition Current Visit: Yes Status: Acute Plan to address problem: Cardiorespiratory arrest patient was found to be acute respiratory failure secondary to hypotension and septic shock. She received Ativan epinephrine CPR per chest and was stabilized only temporarily. She remained hypotensive. (3) Sepsis Current Visit: Yes Status: Acute Qualifiers: Sepsis type: sepsis due to unspecified organism Qualified Code(s): A41.9 - Sepsis, unspecified organism Plan to address problem: Sepsis and septic shock hypotension and hypothermia leukocytosis altered mental status. Bring in prognosis is extremely poor we'll attempted treat underlying etiology of sepsis which I feel is the urine. Chest x-ray unremarkable. (4) Septic shock Current Visit: Yes Status: Acute Plan to address problem: Septic shock secondary to sepsis with UTI. Patient also has acute renal failure vasomotor nephropathy. Would treat underlying etiology with broad- spectrum anabiotic's Rocephin and Levaquin vancomycin. Obtain blood cultures. The rest of our course would depend on what our microbiology shows. We'll start patient on pressor support. Vasopressin. Provide supportive care. (5) Diabetes Current Visit: Yes Status: Acute Qualifiers: Diabetes mellitus type: type 2 Diabetes mellitus complication status: D Diabetes mellitus complication detail: D Diabetic retinopathy severity: D Proliferative retinopathy type: P Diabetes mellitus macular edema: D Diabetes mellitus terminologist insulin use: D Laterality: L Chronic kidney disease stage: stage 1 Plan to address problem: Cover with sliding-scale insulin now. Patient not eating not drinking. Aggressive volume replacement. (6) Decubitus ulcer Current Visit: Yes Status: Acute Qualifiers: Pressure ulcer stage: P Plan to address problem: Sacral decubitus ulcer. Does not appear to be source of infection I think it is mostly urine with septic shock.
[2016-12-22] MEDS ORDERED: VANCOMYCIN VIAL 1,250 MG in NACL 0.9% 250ML 250 ML IV ONE (12:00)
[2016-12-22] MEDS ORDERED: VANCOMYCIN PHARMACY TO DOSE IV SCH (12:00)
[2016-12-22] MEDS ORDERED: NACL 0.9% 1000 ML 1,000 ML IV SCH (12:00)
[2016-12-22] MEDS ORDERED: LEVAQUIN 750MG/150ML 750 MG/150 ML BAG IV SCH (13:00)
[2016-12-22] MEDS ORDERED: NACL 0.9% 1000 ML 1,000 ML ONE ×2 (13:04→14:03)
[2016-12-22] MEDS ORDERED: NACL 0.9% 500 ML 500 ML ONE (13:23)
--- NOTE | 2016-12-22 13:48 | Consultation ---
History of Present Illness Consult date: 12/22/16 Requesting physician: HOLLIS MCCALL Consult reason: cardiac arrest History of present illness: The history was obtained from the medical record as the patient is intubated and unresponsive. Mr. Ceballos is a 76 year old male who presented from his [place] [facility] in cardiac arrest. Per ER documentation, his last known well time was 6:30 am. He was found unresponsive at 7:00 am. CPR was started by [facility] staff. Upon EMS arrival, the patient was found to be apneic and pulseless. Initial rhythm on the radiation monitor showed PEA. Patient was intubated and started on an epinephrine drip prior to arrival. Patient did have return of spontaneous circulation prior to arrival in the emergency department. Currently he is intubated and unresponsive. Troponin level is mildly elevated. WBC 36.1. Hemoglobin 7.2. BUN 68 with a creatinine of 1.6. Lactic acid 12.1. LFTs elevated. UA suggestive of UTI and CXR reveals bilateral perihilar infiltrates. Medications and Allergies Allergies Allergy/AdvReac Type Severity Reaction Status Date / Time No Known Allergies Allergy Verified 12/22/16 08:09 Home Medications Medication Instructions Recorded Confirmed Last Taken Type Arginine/Glutamine/Calcium Hmb 1 each FEEDTUBE BID 12/22/16 12/22/16 Unknown History [[place] Packet] Famotidine [Pepcid] 20 mg FEEDTUBE BID 12/22/16 12/22/16 Unknown History Insulin Regular, Human [HumuLIN R] 1 unit SQ ACHS PRN 12/22/16 12/22/16 Unknown History Active Meds: Active Medications Al Hydrox/Mg Hydrox/Simethicone (Alum-Mag Hydrox-Simeth [id number]/5ml) 30 ml PO Q4H PRN PRN Reason: Indigestion Albuterol/Ipratropium (Duoneb 0.5 Mg-3 Mg/3 Ml Soln) 1 ampul IH Q6HRT MIKEY Bisacodyl (Dulcolax) 10 mg MN QDAY PRN PRN Reason: constipation unrelieved by MOM Enoxaparin Sodium (Lovenox) 40 mg SUB-Q Q24H MIKEY Famotidine (Pepcid) 20 mg IV DAILY MIKEY Hydrophilic Ointment (Vaseline Lip Therapy) 1 applic TP Q2HR PRN PRN Reason: Dry Lips Last Admin: 12/22/16 10:41 Dose: 1 applic Norepinephrine (Levophed Drip 4 Mg/Ns 250 Ml) 4 mg in 250 mls @ 7.5 mls/hr IV TITR MIKEY; 2 MCG/MIN PRN Reason: Protocol Last Titration: 12/22/16 11:23 Dose: 12 mcg/min, 45 mls/hr Cefepime HCl (Maxipime/Ns 1 Gm/100 Ml) 1 gm in 100 mls @ 200 mls/hr IV Q12HR MIKEY PRN Reason: Protocol Levofloxacin/Dextrose (Levaquin 750mg/150ml) 750 mg in 150 mls @ 100 mls/hr IV Q48HR MIKEY PRN Reason: Protocol Sodium Chloride (Nacl 0.9% 1000 Ml) 1,000 mls @ 125 mls/hr IV DIRECT MIKEY Vancomycin HCl (Vancomycin/Ns 1 Gm/250 Ml) 1 gm in 250 mls @ 166.667 mls/hr IV Q36H MIKEY Vasopressin 20 unit/ Sodium (Chloride) 101 mls @ 9.09 mls/hr IV TITR MIKEY PRN Reason: 0.03 UNITS/MIN Magnesium Hydroxide (Milk Of Magnesia) 30 ml PO Q4H PRN PRN Reason: Constipation Morphine Sulfate (Morphine) 2 mg IV Q4H PRN PRN Reason: Pain, Moderate (4-6) Multi-Ingred Cream/Lotion/Oil/Oint (Artificial Tears Ophth Oint) 1 applic OU Q4HR PRN PRN Reason: Dry Eye(s) Last Admin: 12/22/16 10:41 Dose: 1 applic Ondansetron HCl (Zofran) 4 mg IV Q8H PRN PRN Reason: N/V unrelieved by Reglan Sodium Chloride (Nacl 0.9% 500 Ml) 1 ml IV DIRECT MIKEY Vancomycin HCl (Vancomycin Pharmacy To Dose) 1 each IV PKCONSULT MIKEY PRN Reason: Protocol Physical Examination Vital Signs Pulse BP 123 H 96/60 12/22/16 07:47 12/22/16 07:47 Results 12/22/16 08:10 12/22/16 08:10 Assessment and Plan S/p cardiac arrest initial rhythm PEA obtain echo Septic shock/hypotension likely due to pneumonia and UTI abx. per primary wean pressors to maintain MAP > 65 Acute respiratory failure vent weaning per pulmonary Elevated troponin-->likely due to CPR/renal failure Acute on chronic renal failure Anemia Obtain echo. Wean pressors to maintain MAP > 65. Guarded prognosis. The patient has been seen in conjunction with Dr. Hernandez who agrees with the assessment and plan of care. Thank you Dr. Mccall for allowing us to participate in the care of this patient.
[2016-12-22] MEDS ORDERED: MAXIPIME/NS 1 GM/100 ML 1 GM/100 ML BAG IV SCH (13:50)
[2016-12-22] MEDS ORDERED: LOVENOX SUB-Q SCH (14:00)
[2016-12-22] MEDS ORDERED: DUONEB 0.5 MG-3 MG/3 ML SOLN IH SCH (14:00)
[2016-12-22] MEDS ORDERED: PITRESSin 20 UNIT in NACL 0.9% 100 ML IV SCH (14:00)
[2016-12-22] MEDS ORDERED: LOVENOX SUB-Q ONE (14:23)
[2016-12-22] MEDS ORDERED: LEVAQUIN 750MG/150ML 750 MG/150 ML BAG IV ONE (14:23)
[2016-12-22] MEDS ORDERED: LEVOPHED DRIP 4 MG/NS 250 ML 4 MG/250 ML BAG IV ONE (14:37)
[2016-12-22 15:05] LABS: ISTAT Base Excess -10; ISTAT HCO3 19.9; ISTAT PCO2 69.8 (35-45); ISTAT PH 7.064 (7.35-7.45); ISTAT PO2 370 (80-105); ISTAT SO2 100; ISTAT TCO2 22
[2016-12-22] MEDS ORDERED: SODIUM BICARBONATE IV ONE ×2 (15:13→16:32)
--- NOTE | 2016-12-22 15:22 | Consultation ---
History of Present Illness Consult date: 12/22/16 Requesting physician: HOLLIS BORJA History of present illness: PULMONARY/CCM CONSULT NOTE (Full dictation # [id number]) Please see dictated notes for full details Medications and Allergies Allergies Allergy/AdvReac Type Severity Reaction Status Date / Time No Known Allergies Allergy Verified 12/22/16 08:09 Home Medications Medication Instructions Recorded Confirmed Last Taken Type Arginine/Glutamine/Calcium Hmb 1 each FEEDTUBE BID 12/22/16 12/22/16 Unknown History [[place] Packet] Famotidine [Pepcid] 20 mg FEEDTUBE BID 12/22/16 12/22/16 Unknown History Insulin Regular, Human [HumuLIN R] 1 unit SQ ACHS PRN 12/22/16 12/22/16 Unknown History Active Meds: Active Medications Al Hydrox/Mg Hydrox/Simethicone (Alum-Mag Hydrox-Simeth [phone]/5ml) 30 ml PO Q4H PRN PRN Reason: Indigestion Albuterol/Ipratropium (Duoneb 0.5 Mg-3 Mg/3 Ml Soln) 1 ampul IH Q6HRT [facility] Bisacodyl (Dulcolax) 10 mg PA QDAY PRN PRN Reason: constipation unrelieved by MOM Enoxaparin Sodium (Lovenox) 40 mg SUB-Q Q24H [facility] Last Admin: 12/22/16 14:34 Dose: 40 mg Famotidine (Pepcid) 20 mg IV DAILY MIKEY Hydrophilic Ointment (Vaseline Lip Therapy) 1 applic TP Q2HR PRN PRN Reason: Dry Lips Last Admin: 12/22/16 10:41 Dose: 1 applic Norepinephrine (Levophed Drip 4 Mg/Ns 250 Ml) 4 mg in 250 mls @ 7.5 mls/hr IV TITR MIKEY; 2 MCG/MIN PRN Reason: Protocol Last Titration: 12/22/16 11:23 Dose: 12 mcg/min, 45 mls/hr Cefepime HCl (Maxipime/Ns 1 Gm/100 Ml) 1 gm in 100 mls @ 200 mls/hr IV Q12HR MIKEY PRN Reason: Protocol Levofloxacin/Dextrose (Levaquin 750mg/150ml) 750 mg in 150 mls @ 100 mls/hr IV Q48HR MIKEY PRN Reason: Protocol Last Admin: 12/22/16 14:34 Dose: 100 mls/hr Sodium Chloride (Nacl 0.9% 1000 Ml) 1,000 mls @ 125 mls/hr IV DIRECT MIKEY Last Admin: 12/22/16 13:35 Dose: 125 mls/hr Vancomycin HCl (Vancomycin/Ns 1 Gm/250 Ml) 1 gm in 250 mls @ 166.667 mls/hr IV Q36H MIKEY Vasopressin 20 unit/ Sodium (Chloride) 101 mls @ 9.09 mls/hr IV TITR MIKEY PRN Reason: 0.03 UNITS/MIN Last Admin: 12/22/16 14:17 Dose: 9.09 mls/hr Magnesium Hydroxide (Milk Of Magnesia) 30 ml PO Q4H PRN PRN Reason: Constipation Morphine Sulfate (Morphine) 2 mg IV Q4H PRN PRN Reason: Pain, Moderate (4-6) Multi-Ingred Cream/Lotion/Oil/Oint (Artificial Tears Ophth Oint) 1 applic OU Q4HR PRN PRN Reason: Dry Eye(s) Last Admin: 12/22/16 10:41 Dose: 1 applic Ondansetron HCl (Zofran) 4 mg IV Q8H PRN PRN Reason: N/V unrelieved by Reglan Sodium Chloride (Nacl 0.9% 500 Ml) 1 ml IV DIRECT MIKEY Vancomycin HCl (Vancomycin Pharmacy To Dose) 1 each IV PKCONSULT MIKEY PRN Reason: Protocol Physical Examination Vital signs: Vital Signs Pulse BP 123 H 96/60 12/22/16 07:47 12/22/16 07:47 Results - Laboratory Findings CBC and BMP: 12/22/16 08:10 12/22/16 08:10 ABG POC ABG pH 7.064 (7.35-7.45) L 12/22/16 10:23 POC ABG pCO2 69.8 (35-45) H 12/22/16 10:23 POC ABG pO2 370 (80-105) H 12/22/16 10:23 POC ABG HCO3 19.9 12/22/16 10:23 POC ABG Total CO2 22 12/22/16 10:23 POC ABG O2 Sat 100 12/22/16 10:23 Abnormal lab findings: Abnormal Labs 12/22/16 11:24 Lactic Acid 12.1 H*
[2016-12-22 15:31] LABS: ISTAT Base Excess -5; ISTAT PCO2 80.5 (35-45); ISTAT PO2 54 (80-105); ISTAT SO2 73; ISTAT TCO2 27
[2016-12-22 15:58] VITALS: BP 96/60
[2016-12-22 16:21] LABS: ISTAT Base Excess TNR; ISTAT HCO3 TNR; ISTAT PCO2 TNR (35-45); ISTAT PH TNR (7.35-7.45)
[2016-12-22 16:22] LABS: ISTAT PO2 TNR (80-105); ISTAT SO2 TNR; ISTAT TCO2 TNR
[2016-12-22 16:29] LABS: Magnesium 2.9 mg/dL (1.7-2.3); Phosphorous 7.9 mg/dL (2.5-4.5)
[2016-12-22] MEDS ORDERED: ADRENALIN ONE (16:32)
--- NOTE | 2016-12-22 18:27 | Death Note ---
Note Date of : 12/22/16 Time of : 16:40 - Preliminary Cause of (problem) (1) Failure to thrive Qualifiers: Failure to thrive age range: in adult Qualified Code(s): R62.7 - Adult failure to thrive Preliminary cause of Patient cause of (2) Cardiac arrest due to other underlying condition Patient cause of was cardiorespiratory arrest. Patient presented to the ED hypotensive on 2 pressors that were maxed out and pressure still was not very well maintained. Was 70 over palpable. At best. Patient also presented septic shock. Upon presentation patient had episode of pulseless activity in which CPR was started and she received 3 epinephrine into by car. The Route resuscitation with bag ventilation and chest compressions patient did not show pulse within 15 minutes. That particular time: Was called a should have been found down in the skilled nursing we did not know how long. Also had another cold in the ED and finally had her last cold this time. Patient did not have any reflex gag reflex was intubated and unresponsive pupils fixed and dilated it had not had any chance oh quality of life or survival at this time. Therefore code was called. Attempted to each family member after calling skilled nursing multiple times. And found he was his own power of pizza chef and his recently in the hospital. Patient had a friend named Concetta and attempts were made to call [phone]. (3) Sepsis Qualifiers: Sepsis type: Escherichia coli Qualified Code(s): A41.51 - Sepsis due to Escherichia coli [E. coli] Preliminary cause of (4) Septic shock Preliminary cause of (5) Diabetes Qualifiers: Diabetes mellitus type: type 2 Diabetes mellitus complication status: D Diabetes mellitus complication detail: D Diabetic retinopathy severity: D Proliferative retinopathy type: P Diabetes mellitus macular edema: D Diabetes mellitus intermission coordinator insulin use: D Laterality: L Chronic kidney disease stage: stage 1 Preliminary cause of (6) Decubitus ulcer Qualifiers: Pressure ulcer stage: P Preliminary cause of
[2016-12-22] MEDS ORDERED: PEPCID IV SCH (22:00)
--- NOTE | 2016-12-23 02:36 | Consultation ---
CONSULTING PHYSICIAN: Jluis Mccall MD REASON FOR CONSULTATION: Acute hypoxemic respiratory failure, status post cardiac arrest. CHIEF COMPLAINT AND HISTORY OF PRESENT ILLNESS: The patient is a 76-year-old male with past medical history as far as we can tell is significant for hypertension and diabetes, custodial resident, who was last seen normal at 6:30 a.m. at the custodial. Thirty minutes later, he was found unresponsive. CPR was started. EMS mentioned that the patient was apneic and pulseless. Initial rhythm was PEA. He was intubated in the custodial, received ACLS medications, a dose of Narcan, started on epinephrine drip. He did not have return of spontaneous circulation prior to arrival in the ED. In the emergency room, he was kept on the mechanical ventilator and we are asked to assist with management. When I came by to see him, he remained on the mechanical ventilator, was going right in the set rate I believe of 18, tidal volumes of 450, PEEP of 5, nonresponsive. He was hypotensive. Mean arterial pressures were below 60s in the 40s. I do not have any history of emesis or overt aspiration. I certainly cannot rule that out. The patient is not a current tobacco abuser. Remote history is unknown. That really is as much of the history of presentation as I have. PAST MEDICAL HISTORY: Hypertension, diabetes, history of colon cancer, and history of prostate cancer. PAST SURGICAL HISTORY: He has a percutaneous endoscopic gastrostomy tube. MEDICATIONS: He was on at the time I stopped by to see him, according to the medication administration record included the following: He was on albuterol and Atrovent treatments nebulized q.6 hours, cefepime 1 gram IV q.12h., Lovenox 40 mg subcutaneous daily, Pepcid 20 mg IV daily, Levaquin 750 mg IV q.48 hours, morphine 2 mg IV q.____ hours. p.r.n., Levophed drip was going at 12 mcg per minute, Zofran 4 mg IV q.8 hours p.r.n. nausea and vomiting, vancomycin, he received 1 gram dose. He was also on vasopressin, I believe 0.03 units per minute. ALLERGIES: No known drug allergies. DIET: Thin gentleman, acute weight loss or gain history is unknown. FAMILY AND SOCIAL HISTORY: Reportedly, the information we are now getting is that he has recently lost his , he is single, does not appear to be any kids that can be contacted at this point. Remote tobacco, alcohol, or illicit drug use or abuse history is unknown. REVIEW OF SYSTEMS: Unobtainable secondary to the patient's medical and mental condition. Since he has been here, no gross hematochezia or melena, no witnessed seizures, no hematemesis, no bloody tracheal secretions. PHYSICAL EXAMINATION: VITAL SIGNS: At presentation in the Emergency Room, temperature was 97.5, pulse was 123, respiratory rate was 13, blood pressure was 96/60 and quickly dropped to 62/27, oxygen sats are 100%, inspired oxygen concentration was not recorded at the time. HEAD, EYES, EARS, NOSE, AND THROAT: Pupils are equal, round, about 3 mm, very sluggishly reactive to light. Extraocular muscle movements could not be assessed. Endotracheal tube is in place, taped at the lips around 23 cm. LUNGS: Auscultation of both lung bautista revealed bilateral rales, no wheezing. NECK: Grossly, no palpable lymph nodes in the supraclavicular or submandibular lymph node chains. He has a right IJ triple lumen catheter in place. ABDOMEN: Flat, soft, bowel sounds positive, nontender. EXTREMITIES: Without overt digital clubbing, cyanosis, or pedal edema. NEUROLOGIC: He was nonresponsive. LABORATORY DATA: From my review are as follows: White cell count 36,100 with a hemoglobin of 7.3, hematocrit of 24.3, and platelets of 360. Arterial blood gas at presentation showed a pH of 7.06, pCO2 of 70, pO2 of 370, and this was on 100% FiO2. I believe the vent settings at that time 450 on tidal volumes, 14 on the rate and 5 on the PEEP. Serum sodium was 141, potassium 4.1, chloride 95, bicarbonate 17, BUN 68, creatinine 1.6, and a glucose of 167. Lactic acid level was 12.1. AST was 418, ALT was 296, troponin 0.065, albumin low at 2.4. Urinalysis showed large leukocyte esterase and greater than 182 white cells per high power field. RADIOGRAPHIC STUDIES: Chest x-ray shows right IJ central line tip is likely in the right atrium/right atrium SVC junction, bilateral hilar predominant or perihilar infiltrates obvious. Defibrillator pads are seen overlying the right upper anterior chest wall. Endotracheal tube tip is at the level of the aortic knob. No gross pneumothorax, no gross bony fractures that I can see. Blood cultures no growth to date. ASSESSMENT AND PLAN: We have an elderly gentleman in with severe sepsis. Respiratory shaver, we will assume that this is a bilateral pneumonia and continue bronchodilators as ordered. Aspiration precautions and other ventilator bundles will be instituted. I will get a stat ABG right now but in the meantime, I am going to hyperventilate him to compensate for the severe metabolic acidosis he is dealing with in particular. I will increase the set rate to 25 and keep the tidal volume at 450 and increase further depending on the arterial blood gas result. We will see how he goes during the admission. I doubt we should be looking for venous thromboembolic phenomenon, the bilateral infiltrates. Urinalysis suggests that this is all sepsis driven. From a cardiovascular standpoint, aggressive volume resuscitation is ongoing. He is on his 4th liter of normal saline at this point. We will increase the vasopressors and max them out as necessary, titrate to mean arterial pressures greater than or equal to about 60 mmHg and acute coronary syndrome workup will be at the behest of the attending physician. From a GI and nutritional standpoint, enteral nutrition will be the feeding modality of choice. He is appropriately on GI prophylaxis. Aspiration precautions will be maintained. From a renal standpoint, the numbers do appear prerenal. Volume resuscitation is ongoing. Inputs and outputs will be monitored. Electrolytes will be corrected as necessary. I will go ahead and order phosphorus and magnesium levels also at this point. From a [employer] standpoint, it is unclear if this was focal or if there were any focal deficits at presentation. For now, he is a little bit too unstable. We will follow him clinically for now and continue to treat him and the decisions will be made about neuro imaging depending on his hospital course. From an infectious disease standpoint, he is appropriately on broad spectrum antibiotic therapy including double gram-negative coverage. Anti-infectives will ultimately be deescalated based on results of clinical and microbiologic data. He is having significant amounts of diarrhea in the room right now. We will send stool for C. diff and if positive, begin Flagyl. From a general and hospital healthcare maintenance standpoint, he is going to be on GI and DVT prophylaxis. Flu and pneumonia vaccination will be per protocol. Thank you very much for the consult Dr. Mccall. We will follow along and make further recommendations as picture progresses/becomes clearer. He is critically ill, on life-sustaining interventions including mechanical ventilatory support, at high risk for further deterioration including . I should mention central venous pressures will be measured as soon as he gets to the Intensive Care Unit. JOB# [id number] DELIA/ROSANNE
[2016-12-23] MEDS ORDERED: LOVENOX SUB-Q SCH (10:00)
[2016-12-23] MEDS ORDERED: VANCOMYCIN/NS 1 GM/250 ML 1 GM/250 ML BAG IV SCH (23:00)
== END 2016-12-22 23:50 | DRG 871 ==
LOC: ED 07:47 → CC1 11:03
PROVIDERS: ADMIT Internal Medicine; ATTEND Internal Medicine
PROC: 4A033R1 Measurement of Arterial Saturation, Peripheral, Percutaneous Approach (ICD-10-PCS; principal; 2016-12-22)
PROC: 5A1935Z Respiratory Ventilation, Less than 24 Consecutive Hours (ICD-10-PCS; 2016-12-22)
PROC: 0BH17EZ Insertion of Endotracheal Airway into Trachea, Via Natural or Artificial Opening (ICD-10-PCS; 2016-12-22)
DX: A41.51 Sepsis due to Escherichia coli [E. coli] (principal); R65.21 Severe sepsis with septic shock; J96.01 Acute respiratory failure with hypoxia; N17.9 Acute kidney failure, unspecified; I13.0 Hypertensive heart and chronic kidney disease with heart failure and stage 1 through stage 4 chronic kidney disease, or unspecified chronic kidney disease; I46.9 Cardiac arrest, cause unspecified; E11.9 Type 2 diabetes mellitus without complications; J44.9 Chronic obstructive pulmonary disease, unspecified; R62.7 Adult failure to thrive; L89.159 Pressure ulcer of sacral region, unspecified stage; I50.9 Heart failure, unspecified; N18.9 Chronic kidney disease, unspecified; D64.9 Anemia, unspecified; Z93.1 Gastrostomy status; Z85.038 Personal history of other malignant neoplasm of large intestine
CPT/HCPCS: 36415; 71010; 80053; 80061; 81001; 82140; 82803; 82962; 83735; 84100; 84484; 85007; 85025; 86850; 86900; 86901; 87040; 87070; 87086; 87205; 93005; 93010; 94002; J0171; J0692; J1650; J1956; J2543; J3370; J7030; J7040; J7050